=== PATIENT | male | born 1965 | race Caucasian/White ===

== ENCOUNTER 2025-05-13 11:52 | Emergency (ER) | payer BC ==
[~2025-05-13] VITALS: Ht 177.8 cm; Wt 107.3 kg
[2025-05-13] MEDS ORDERED: TAMS-18 PO (12:27)
[2025-05-13] MEDS ORDERED: GABA-1490 PO (12:27)
[2025-05-13] MEDS ORDERED: ADVA1AER9 INH (12:27)
[2025-05-13] MEDS ORDERED: HYDR50TA46 PO (12:27)
[2025-05-13] MEDS: PERCOCET 5MG/325MG TAB PO ONE (17:24)
[2025-05-13] MEDS: KETOROLAC 60 MG/2 ML VIAL IM ONE (21:08)
[2025-05-13 21:57] VITALS: BP 156/95; TEMP 97.5; O2SAT 98
[2025-05-13] MEDS ORDERED: LIDO1ADH93 TOP (22:10)
[2025-05-13] MEDS ORDERED: NAPR-837 PO (22:10)
[2025-05-13] MEDS ORDERED: METH-1164 PO (22:10)
[2025-05-13] MEDS ORDERED: MIRA3350 PO (22:13)
[2025-05-13] MEDS ORDERED: MM S100C PO (22:13)
== END 2025-05-13 22:24 | disposition home or self-care (01) ==
LOC: M ED 11:52
DX: S16.1XXA Strain of muscle, fascia and tendon at neck level, initial encounter (principal); S39.012A Strain of muscle, fascia and tendon of lower back, initial encounter; S80.01XA Contusion of right knee, initial encounter; S80.02XA Contusion of left knee, initial encounter; S90.02XA Contusion of left ankle, initial encounter; S70.02XA Contusion of left hip, initial encounter; Y92.019 Unspecified place in single-family (private) house as the place of occurrence of the external cause; Y93.9 Activity, unspecified; Y99.9 Unspecified external cause status; W11.XXXA Fall on and from ladder, initial encounter; K59.00 Constipation, unspecified; I10 Essential (primary) hypertension; J44.9 Chronic obstructive pulmonary disease, unspecified; G47.33 Obstructive sleep apnea (adult) (pediatric); F10.10 Alcohol abuse, uncomplicated; Z88.8 Allergy status to other drugs, medicaments and biological substances; Z91.030 Bee allergy status; Z79.899 Other long term (current) drug therapy
CPT/HCPCS: 70450; 72110; 72125; 73110; 73521; 73564; 73610; 74176; 80047; 96372; 99284; J1885